=== PATIENT | female | born 1985 | race African-American/Black ===

== ENCOUNTER 2017-08-09 05:15 | Emergency (ER) | payer SELFPAY ==
[~2017-08-09] VITALS: Ht 154.9 cm; Wt 98.4 kg
[2017-08-09 05:28] VITALS: BP 120/75
[2017-08-09] MEDS ORDERED: IBUPROFEN600 MG ORAL (05:45)
--- NOTE | 2017-08-09 05:46 | Emergency Room Report ---
History of Present Illness General Chief Complaint: Upper Respiratory Illness Source: Patient Present Illness HPI Is a 32-year-old female with no past medical history. She presents with chief complaint of sore throat, cough, body aches. Onset for last 2 days. No nausea no vomiting. No fever or chills. Nothing made it better. Swelling it worse. Allergies: Coded Allergies: No Known Allergies (Unverified , 08/09/17) Patient History Past Medical History: none, see triage record, old chart reviewed Past Surgical History: none Pertinent Family History: none Social History: Denies: smoking Last Menstrual Period: 07/06/17 Now: No Immunizations: other Reviewed Nursing Documentation: PMH: Agreed, PSxH: Agreed Nursing Documentation-PMH Past Medical History: No Stated History Review of Systems Eye: Denies: eye pain, blurred vision ENT: Reports: throat pain Respiratory: Reports: cough Cardiovascular: Denies: chest pain, palpitations Gastrointestinal: Denies: abdominal pain, diarrhea, nausea, vomiting Musculoskeletal: Denies: back pain, joint pain Skin: Denies: rash Neurological: Denies: headache, numbness Endocrine: Denies: increased thirst, increased urine Hematologic/Lymphatic: Denies: easy bruising All Other Systems: negative except mentioned in HPI Physical Exam Vital Signs Date Time Temp Pulse Resp B/P (MAP) Pulse Ox O2 Delivery O2 Flow Rate FiO2 08/09/17 05:17 98.1 77 16 120/75 96 Room Air vitals normal Sp02 EP Interpretation: reviewed, normal General Appearance: well appearing, no apparent distress, alert, obese Head: normocephalic, atraumatic Eyes: bilateral eye PERRL, bilateral eye EOMI ENT: hearing grossly normal, pharyngeal erythema Neck: full range of motion, supple, no meningismus Respiratory: chest non-tender, lungs clear, normal breath sounds Cardiovascular #1: regular rate, rhythm, no murmur Gastrointestinal: normal bowel sounds, non tender, no mass, no organomegaly, no bruit, non-distended Musculoskeletal: back normal, gait/station normal, normal range of motion Psychiatric: mood/affect normal Skin: warm/dry Medical Decision Making Diagnostic Impression: Primary Impression: Upper respiratory symptom ER Course Patient presents with a viral illness. No evidence of meningitis, tonsillitis other bacterial infection. We'll discharge home. Last Vital Signs Date Time Temp Pulse Resp B/P (MAP) Pulse Ox O2 Delivery O2 Flow Rate FiO2 08/09/17 05:28 77 16 Room Air 08/09/17 05:28 98.1 120/75 96 Status: unchanged Disposition: HOME, SELF-CARE Condition: Stable Scripts Ibuprofen* (MOTRIN*) 600 Mg Tablet 600 MG ORAL Q8H Y for For Pain, #30 TAB 0 Refills Prov: AYAZ SKELTON M.D. 08/09/17 Patient Instructions: Upper Respiratory Infection, Adult Additional Instructions: Followup with your DrLeanna in 7 days. return if symptom worsen. AYAZ SKELTON M.D. Aug 09, 2017 05:46
[2017-08-09 05:49] VITALS: BP 120/75
== END 2017-08-09 05:49 | disposition home or self-care (01) ==
LOC: EMR 05:32
DX: J06.9 Acute upper respiratory infection, unspecified (principal)
CPT/HCPCS: 99283